=== PATIENT | female | born 1960 | race Caucasian/White ===

== ENCOUNTER 2025-08-14 10:55 | Outpatient (CLI) | payer MEDICARE, SELFPAY ==
--- OUTSIDE RECORDS SUMMARY | 2025-07-20 11:00 | XMS_ITS | Encounter Summary ---
[facility] Address [address] [place] [address] Care Team Providers Care Component Overhaul Operator Name Role Phone Herminia Peraza TAMPING MACHINE OPERATOR Primary Care Provider [phone] Reason for Visit * Reason Comments Difficulty Urinating Encounter Details Date Type Department Care Team (Late st Contact Info) Description 07/20/2025 11:00 AM EDT Office Visit [facility] [address] [place] [address] [place] [phone] Herminia Peraza, TAMPING MACHINE OPERATOR [address] [place], [place] [id number] Dysuria (Primary Dx); Acute cystitis with hematuria Social History Tobacco Use Types Packs/Day Years Used Date Smoking Tobacco: Every Day Cigarettes 0.5 45 Smokeless Tobacco: Never Comments:less than .50 ppd Alcohol Use Standard Drinks/Week Comments Yes 0 (1 standard drink = 0.6 oz pur e alcohol) 3-4 drinks a week PHQ-2 Answer Date Recorded Patient Health Questionnaire-2 Score 0 06/09/2025 Comments No Sex and Gender Information Value Date Recorded Sex Assigned at Not on file Legal Sex Female 2:45 PM EDT Gender Identity Not on file Sexual Orientation Not on file 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 Not on file Not on file documented as of this encounter Last Filed Vital Signs Vital Sign Reading Time Taken Comments Blood Pressure - - Pulse 68 07/20/2025 11:04 AM EDT Temperature 37.7 C (99.9 F) 07/20/2025 11:04 AM EDT Respiratory Rate 16 07/20/2025 11:04 AM EDT Oxygen Saturation 95% 07/20/2025 11:04 AM EDT Inhaled Oxygen Concentration - - Weight 64 kg (141 lb) 07/20/2025 11:04 AM EDT Height 167.6 cm (5' 6 ) 07/20/2025 11:04 AM EDT Body Mass Index 22.76 07/20/2025 11:04 AM EDT documented in this encounter Progress Notes * StuAnny brambilalogan [place], TAMPING MACHINE OPERATOR - 07/20/2025 11:00 AM EDT Images from the original note were not included. Office Note Name: Ely Tran : 1960 Chief Complaint Difficulty Urinating Subjective History of Present Illness The patient presents for evaluation of a possible urinary tract infection (UTI). She has been experiencing discomfort for slightly over a week, which she attributes to a UTI. Her symptoms began during a trip to [facility] last week with a mild burning sensation during urination. However, her condition worsened on Thursday night with the onset of chills, fever, body aches, and back pain. These symptoms are somewhat alleviated by ibuprofen, but the burning sensation persists. She reports feeling unwell for the past 24 hours, describing her symptoms as flu-like, including the burningsensation and backache. She does not have any congestion. Initially, she thought her symptoms were due to excessive beer consumption, but even after abstaining from alcohol, her condition did not improve. She also reports an unpleasant odor in her urine. She has no history of UTIs and initially suspected a yeast infection, but the absence of itching led her to rule this out. She spends a significant amount of time in water. She has never contracted COVID-19 and reports no related symptoms. Prior to her vacation, she was consuming 80 to 90 ounces of water daily in an attempt to lose weight, but she stopped this regimen during her trip. SOCIAL HISTORY She admits to drinking beer. MEDICATIONS CURRENT MEDS: Ibuprofen Oral As needed Objective Past Medical History: Diagnosis Date GERD (gastroesophageal reflux disease) Heart burn Hyperlipidemia Lung nodule Peptic ulceration Past Surgical History: Procedure Laterality Date DENTAL PROCEDURE TONSILLECTOMY Family History Problem Relation Age of Onset Alzheimer's disease Mother Thyroid disease Mother Rheum arthritis Father Cancer Father parathyroid cancer Vital Signs Pulse 68 Temp 99.9 ??F (37.7 ??C) (Temporal) Resp 16 Ht 167.6 cm (66 ) Wt 64 kg (141 lb) SpO2 95% BMI 22.76 kg/m?? Estimated body mass index is 22.76 kg/m?? as calculated from the following: Height as of this encounter: 167.6 cm (66 ). Weight as of this encounter: 64 kg (141 lb). Facility age limit for growth %walt is 20 years. Physical Exam Vitals reviewed. Constitutional: Appearance: Normal appearance. HENT: Head: Normocephalic and atraumatic. Right Ear: Tympanic membrane, ear canal and external ear normal. Left Ear: Tympanic membrane, ear canal and external ear normal. Nose: Nose normal. Mouth/Throat: Mouth: Mucous membranes are moist. Pharynx: Oropharynx is clear. Eyes: Conjunctiva/sclera: Conjunctivae normal. Cardiovascular: Rate and Rhythm: Normal rate and regular rhythm. Heart sounds: Normal heart sounds. Pulmonary: Effort: Pulmonary effort is normal. Breath sounds: Normal breath sounds. Abdominal: Tenderness: There is no abdominal tenderness. There is no right CVA tenderness, left CVA tenderness, guarding or rebound. Musculoskeletal: Cervical back: Neck supple. Skin: General: Skin is warm and dry. Capillary Refill: Capillary refill takes less than 2 seconds. Neurological: Mental Status: She is alert and oriented to person, place, and time. POCT Results (if applicable): Results for orders placed or performed in visit on 07/20/25 POC Urinalysis Dipstick Collection Time: 07/20/25 11:07 AM Specimen: Urine Result Value Ref Range Color Straw Yellow, Straw, Dark Yellow, [place]a Clarity, UA Cloudy (A) Clear Glucose, UA Negative Negative mg/dL Bilirubin Negative Negative Ketones, UA Negative Negative Specific [place] 1.010 1.005 - 1.030 Blood, UA 2+ (A) Negative pH, Urine 1.0 (A) 5.0 - 8.0 Protein, POC 1+ (A) Negative mg/dL Urobilinogen, UA 0.2 E.U./dL Normal, 0.2 E.U./dL Leukocytes Large (3+) (A) Negative Nitrite, UA Negative Negative Assessment and Plan Diagnoses and all orders for this visit: 1. Dysuria (Primary) - POC Urinalysis Dipstick - nitrofurantoin, macrocrystal-monohydrate, (Macrobid) 100 MG capsule; Take 1 capsule by mouth 2 (Two) Times a Day. Dispense: 10 capsule; Refill: 0 - phenazopyridine (Pyridium) 100 MG tablet; Take 1 tablet by mouth 3 (Three) Times a Day As Needed for Bladder Spasms or Dysuria. Dispense: 10 tablet; Refill: 0 2. Acute cystitis with hematuria Assessment & Plan 1. Urinary Tract Infection (UTI). Symptoms include burning during urination, chills, fever, body aches, and back pain. Urinalysis confirmed the presence of blood and leukocytes, indicating a UTI. A prescription for Macrobid 100 mg, to be taken twice daily for 5 days, has been provided. Additionally, Pyridium 200 mg has been prescribed to alleviate urinary discomfort, to be taken three times daily as needed. She is advised to maintain adequate hydration and continue ibuprofen for back pain management. The use of cranberry juice or tablets is also recommended. If there is no improvement in her condition, she should inform the clinic. BMI is within normal parameters. No other follow-up for BMI required. Follow Up Return if symptoms worsen or fail to improve. Patient or patient technical sales representatives verbalized consent for the use of Ambient Listening during the visit with Herminia Peraza APRN for chart documentation. 07/20/2025 13:10 EDT Herminia Peraza APRN documented in this encounter Plan of Treatment Not on file documented as of this encounter Procedures Procedure Name Priority Date/Time Associated Diagnosis Comments POCT URINALYSIS DIPSTICK, MANUAL Routine 07/20/2025 11:07 AM EDT Dysuria documented in this encounter Results * (ABNORMAL) POC Urinalysis Dipstick (07/20/2025 11:07 AM EDT) Color Straw Yellow, Straw, Dark Yellow, Toya [facility] Clarity, UA Cloudy(A) Clear [facility] Glucose, UA Negative Negative mg/dL [facility] Bilirubin Negative Negative [facility] Ketones, UA Negative Negative [facility] Specific [place] 1.010 1.005 - 1.030 [facility] Blood, UA 2+(A) Negative [facility] pH, Urine 1.0(A) 5.0 - 8.0 [facility] Protein, POC 1+(A) Negative mg/dL [facility] Urobilinogen, UA 0.2 E.U./dL Normal, 0.2 E.U./dL [facility] Leukocytes Large (3+)(A) Negative [facility] Nitrite, UA Negative Negative [facility] Urine 07/20/2025 11:0 7 AM EDT Herminia Peraza TAMPING MACHINE OPERATOR POINT OF CARE TEST ORDERABL ES Final Result [facility]
[address] [place] [address], documented in this encounter Visit Diagnoses Diagnosis Dysuria- Primary Acute cystitis with hematuria documented in this encounter Care Teams Component Overhaul Operator Relationship Specialty Start Date End Date Herminia Peraza, TAMPING MACHINE OPERATOR [address] [place] [id number] PCP - General Family Medicine 10/06/24 documented as of this encounter
--- OUTSIDE RECORDS SUMMARY | 2025-07-27 15:00 | XMS_ITS | Encounter Summary ---
[facility] Address [address] [place] [address] Care Team Providers Care Chute Puller Name Role Phone Herminia Peraza TIP INSERTER Primary Care Provider [phone] Reason for Visit * Reason Comments dysuria Encounter Details Date Type Department Care Team (Late st Contact Info) Description 07/27/2025 3:00 PM EDT Office Visit [facility] [address] [place] [address] [place] [address] Herminia Peraza, TIP INSERTER [address] [place], [place] [id number] Dysuria (Primary Dx); Acute cystitis with hematuria [...] Taken Comments Blood Pressure - - Pulse 90 07/27/2025 2:44 PM EDT Temperature 36.6 C (97.9 F) 07/27/2025 2:44 PM EDT Respiratory Rate 16 07/27/2025 2:44 PM EDT Oxygen Saturation 98% 07/27/2025 2:44 PM EDT Inhaled Oxygen Concentration - - Weight 64 kg (141 lb) 07/27/2025 2:44 PM EDT Height 167.6 cm (5' 6 ) 07/27/2025 2:44 PM EDT Body Mass Index 22.76 07/27/2025 2:44 PM EDT documented in this encounter Progress Notes * StuHerminia brambila Román, TIP INSERTER - 07/27/2025 3:00 PM EDT Images from the original note were not included. Office Note Name: Ely Tran : 1960 Chief Complaint dysuria Subjective History of Present Illness The patient presents for evaluation of a urinary tract infection. She reports an improvement in her condition following the onset of symptoms on 07/21/2025. Patient was last evaluated in our office on July 20 at which time she was prescribed Macrobid for complaints that she was experiencing fever, chills, and body aches, which led to two days of bed rest. Her fever peaked at 101 degrees. By 07/23/2025, she was able to attend her great nephew's soccer game but required rest afterward. Her symptoms of aching and chills have since subsided. However, she continues to experience burning during urination and has noticed an abnormal color in her urine. She has been able to maintain her appetite and hydration. She also reports that consuming beer exacerbatedher symptoms, leading her to abstain from it for the past two weeks. She has tried Pyridium for theburning sensation during urination but found it ineffective. SOCIAL HISTORY The patient has not had a beer since Thursday a week ago. MEDICATIONS CURRENT MEDS: Pyridium Objective Past Medical History: Diagnosis Date GERD (gastroesophageal reflux disease) Heart burn Hyperlipidemia Lung nodule Peptic ulceration Past Surgical History: Procedure Laterality Date DENTAL PROCEDURE TONSILLECTOMY Family History Problem Relation Age of Onset Alzheimer's disease Mother Thyroid disease Mother Rheum arthritis Father Cancer Father parathyroid cancer Vital Signs Pulse 90 Temp 97.9 ??F (36.6 ??C) (Temporal) Resp 16 Ht 167.6 cm (66 ) Wt 64 kg (141 lb) SpO2 98% BMI 22.76 kg/m?? Estimated body mass index is 22.76 kg/m?? as calculated from the following: Height as of this encounter: 167.6 cm (66 ). Weight as of this encounter: 64 kg (141 lb). Facility age limit for growth %walt is 20 years. Physical Exam Vitals reviewed. Constitutional: Appearance: Normal appearance. Pulmonary: Effort: Pulmonary effort is normal. No respiratory distress. Abdominal: Tenderness: There is no right CVA tenderness or left CVA tenderness. Musculoskeletal: Cervical back: Neck supple. Skin: General: Skin is warm and dry. Neurological: Mental Status: She is alert and oriented to person, place, and time. POCT Results (if applicable): Results for orders placed or performed in visit on 07/27/25 POC Urinalysis Dipstick Collection Time: 07/27/25 2:53 PM Specimen: Urine Result Value Ref Range Color [place] (A) Yellow, Straw, Dark Yellow, Toya Clarity, UA Cloudy (A) Clear Glucose, UA Negative Negative mg/dL Bilirubin Negative Negative Ketones, UA Negative Negative Specific [place] 1.020 1.005 - 1.030 Blood, UA 2+ (A) Negative pH, Urine 6.0 5.0 - 8.0 Protein, POC Negative Negative mg/dL Urobilinogen, UA 0.2 E.U./dL Normal, 0.2 E.U./dL Leukocytes Large (3+) (A) Negative Nitrite, UA Positive (POSITIVE) Negative Assessment and Plan Diagnoses and all orders for this visit: 1. Dysuria (Primary) - Urine Culture - Urine, Urine, Clean Catch - POC Urinalysis Dipstick 2. Acute cystitis with hematuria - ciprofloxacin (Cipro) 500 MG tablet; Take 1 tablet by mouth 2 (Two) Times a Day for 7 days. Dispense: 14 tablet; Refill: 0 Assessment & Plan 1. Urinary Tract Infection. The patient's symptoms, including burning during urination and abnormal urine color, suggest a persistent urinary tract infection. A urine dipstick test confirmed the presence of nitrites. A prescription for Ciprofloxacin 500 mg, to be taken twice daily for 7 days, [facility]. A urine culture will be conducted to identify the specific bacteria, and results are expected by Thursday. The patient will be contacted with the results to confirm the effectiveness of Ciprofloxacin or to adjust the antibiotic if necessary. BMI is within normal parameters. No other follow-up for BMI required. Follow Up Return if symptoms worsen or fail to improve. Patient or patient territory sales representative verbalized consent for the use of Ambient Listening during the visit with Herminia Peraza APRN for chart documentation. 07/27/2025 14:58 EDT Herminia Peraza APRN documented in this encounter Plan of Treatment Not on file documented as of this encounter Procedures Procedure Name Priority Date/Time Associated Diagnosis Comments POCT URINALYSIS DIPSTICK, MANUAL Routine 07/27/2025 2:53 PM EDT Dysuria URINE CULTURE Routine 07/27/2025 2:40 PM EDT Dysuria documented in this encounter Results * (ABNORMAL) POC Urinalysis Dipstick (07/27/2025 2:53 PM EDT) Color [place](A) Yellow, Straw, Dark Yellow, Toya [facility] Clarity, UA Cloudy(A) Clear [facility] Glucose, UA Negative Negative mg/dL [facility] Bilirubin Negative Negative [facility] Ketones, UA Negative Negative [facility] Specific [place] 1.020 1.005 - 1.030 [facility] Blood, UA 2+(A) Negative [facility] pH, Urine 6.0 5.0 - 8.0 [facility] Protein, POC Negative Negative mg/dL [facility] Urobilinogen, UA 0.2 E.U./dL Normal, 0.2 E.U./dL [facility] Leukocytes Large (3+)(A) Negative [facility] Nitrite, UA Positive(POS ITIVE) Negative [facility] Urine 07/27/2025 2:53 PM EDT us Herminia Peraza APRN POINT OF CARE TEST ORDERABL ES Final Result [facility]
[address] [place] [address], [place] [phone] * (ABNORMAL) Urine Culture - Urine, Urine, Clean Catch (07/27/2025 2:40 PM EDT) Urine Culture Final report(A) [facility] Result 1 Escherichia coli(A) [facility] Comment: Cefazolin with an BRANDON <=16 predicts susceptibility to the oral agents cefaclor, cefdinir, cefpodoxime, cefprozil, cefuroxime, cephalexin, and loracarbef when used for therapy of uncomplicated urinary tract infections due to E. coli, Klebsiella pneumoniae, and Proteus mirabilis. Greater than 100,000 colony forming units per mL Susceptibility Testing Comment [facility] Comment: S = Susceptible; I = Intermediate; R = Resistant P = Positive; N = Negative MICS are expressed in micrograms per mL Antibiotic RSLT#1 RSLT#2 RSLT#3 RSLT#4 Amoxicillin/Clavulanic Acid S Ampicillin R Cefazolin S Cefepime S Cefoxitin S Cefpodoxime S Ceftriaxone S Ciprofloxacin I Ertapenem S Gentamicin S Levofloxacin I Meropenem S Nitrofurantoin S Piperacillin/Tazobactam S Tetracycline S Tobramycin S Trimethoprim/Sulfa S Urine Urine specimen obtained by clean catch procedure / Unknown 07/27/2025 2:40 PM EDT 07/27/2025 Comment:Urine Release to [facility] Eduardo [facility]) - 07/30/2025 6:37 AM EDT Performed at: [address] [id number] Requisition Approver: Ashok Atkins PhD, Phone: [phone] Herminia Peraza APRN MICROBIOLOGY - GENERAL TIERNEY PETERSEN Final Result [facility] [address] [place] [address], [facility] [address] [place] [address], [place] [phone] documented in this encounter Visit Diagnoses Diagnosis Dysuria- Primary Acute cystitis with hematuria documented in this encounter Care Teams Chute Puller Relationship Specialty Start Date End Date Herminia Peraza, TIP INSERTER [address] [place] [id number] PCP - General Family Medicine 10/06/24 documented as of this encounter
--- OUTSIDE RECORDS SUMMARY | 2025-08-10 07:12 | XMS_ITS | Continuity of Care Document ---
Author Organization [facility] Phone Care Team Providers Care Assembled Wood Products Repairer Name Role Phone ZEE PONCE Primary Attending ZEE PONCE Admitting ZEE PONCE Unavailable ZEE PONCE Primary Care ALLERGIES AND ADVERSE REACTIONS ALLERGIES AND ADVERSE REACTIONS Code System Allergy Substance Adverse Reaction Date Reaction (Severity) Comment Status Reported By [place] [id number] SNOMED CT SULFA ANTIBIOTICS Adverse reaction to substance itching active [id number] on May 16, 2019 12:56:46 PM [facility] FAMILY HISTORY RELATION: Father Status: Cause of : Unknown Age at : Unknown SNOMED-CT Diagnosis Age At Onset [id number] Malignant neoplastic disease RELATION: Mother Status: LIVING SNOMED-CT Diagnosis Age At Onset [id number] Alzheimer's disease RESULTS Patient: DEBRA ADKINS Date of : 1960 LABORATORY RESULTS Information is not available LABORATORY NARRATIVE RESULTS Information is not available RADIOLOGY RESULTS ORDER 100: CT ABD/PELVIS W/O (LOINC: 24955-2) ORDER DATE: August 07, 2025 7:15:00 PM [facility] PERFORMING LAB: [address] [id number] Final Result Date: July 262024 7:27:00 PM [address] [place] [address] Name: MARIA T RICHARDSON Exam Date: 08/07/2025 : 1960 Age 64 years Gender: F Physician: ZEE PONCE Facility: [facility] Facility HSV: Outpatient Exam: CT ABD/PELVIS W/O CT ABDOMEN PELVIS WITHOUT IV CONTRAST 08/07/2025 2:27 PM CDT CLINICAL INDICATION: Female, 64 years old. pelvic phlebplitiasis COMPARISON: None TECHNIQUE: CT of the abdomen and pelvis was performed without IV contrast. The lack of contrast limits the sensitivity of this study for detecting pathology. Dose modulation, automated exposure control, and/or iterative reconstruction technique used for dose reduction. FINDINGS: Calcified granulomas right lung base. Lung bases otherwise clear. Calcified splenic granulomas. The solid organs otherwise unremarkable. The gallbladder is unremarkable. No evidence of bowel wall thickening or abnormal distention of bowel. The appendix is normal. No evidence of ascites. IMPRESSION: No radiographic evidence of acute disease. Electronically signed by: Bernie Lee MD 08/07/2025 03:43 PM EDT RP Dictated By: Bernie Lee Transcribed By: Transcribed On: 08/07/2025 3:27 PM Electronically signed by: Bernie Lee 08/07/2025 Thank you for referring MARIA T RICHARDSON to [facility]. Legally authenticated by CORBIN DAVIDSON III, MD 2025-08-07 15:27:00 PATHOLOGY NARRATIVE RESULTS Information is not available MICROBIOLOGY RESULTS No Micro Labs/Results Exist for Patient BLOOD ADMIN RESULTS Information is not available MEDICATIONS HOME MEDICATIONS Status RXNORM NDC Medication Dose Route Frequency Dates Comments Reported By Updated By Drug Treatment Unknown DISCHARGE MEDICATIONS Status RXNORM NDC Medication Dose Route Frequency Dates Dis pense Data Comments Physician Updated By No Discharge Medication Info rmation Available INPATIENT MEDICATIONS Status RXNORM NDC Medication Dose Route Frequency Rat e Quantity Dates Indication Dispense Data Comments Physician Updated By No Inpatient Medication Info rmation Available SOCIAL HISTORY SOCIAL HISTORY - Smoking Status SNOMED-CT Social History Element Description Effective Dates Offered Cessation Comment Updated By [id number] Historical Tobacco smoking status Current Every Day Smoker Yes [id number] on May 12, 2019 12:08:25 PM [facility] SOCIAL HISTORY - Gender Sex: Female SOCIAL HISTORY - Status : status i nformation is not available Intention in Next Year: intention information is not available SOCIAL HISTORY - Assessments Code System Description Status Date Value of Assessment Updated By Comment Assessment Information is no t available SOCIAL HISTORY - [place] Affiliation [place] information is not av ailable SOCIAL HISTORY - Legal Sex Legal Sex information is not available SOCIAL HISTORY - Sexual Behavior Sexual Orientation Gender Identity SNOMED-CT Description SNO MED -CT Description Activity Level No of Partners Partner Type UpdatedBy Information is not available SOCIAL HISTORY - Occupation Occupation information is no t available HEALTH CONCERNS Problems Concern Status Health Concern problem infor mation not available. Smoking Status Status Years Used Consumed packs p er day Health Concern smoking histo ry information not available. Family History Concern Status Health Concern family histor y information not available. MEDICAL EQUIPMENT MEDICAL EQUIPMENT Device Status Quantity Dates Procedure Comments Updated By No implanted devices [id number] on 2024 2:59:03 PM [facility] ENCOUNTERS ENCOUNTER INFORMATION Reason for Visit I87.8 Admission August 07, 2025 6:51:[address] [id number] Discharge August 07, 2025 11:51:00 PM [facility] DISCHARGED TO HOME OR SELF CARE ENCOUNTER DIAGNOSES Notes information is not christina ilable. Code System Diagnosis Onset Date Diagnosis information is not available. ABSTRACT DIAGNOSES Code System Diagnosis Updated By Abatement Date I87.8 ICD10 OTHER SPECIFIED DISORDERS OF VEINS [id number] on August 10, 2025 11:11:52 AM [facility] I87.8 ICD10 OTHER SPECIFIED DISORDERS OF VEINS [id number] on August 10, 2025 11:11:52 AM [facility] CARE TEAM Care Assembled Wood Products Repairer Role ZEE PONCE Primary Attending ZEE PONCE Admitting ZEE PONCE Referring ZEE PONCE Primary Care CARE TEAM CARE geography instructor Role on Team Location Telecom Status Start Date End Ronaldo e Updated By KRIS KOCH APRN PCP normal August 07, 2025 1:31:04 PM [facility] August 07, 2025 11:51:00 PM [facility] [id number] on August 07, 2025 1:31:04 PM [facility] KRIS KOCH APRN Referring normal August 07, 2025 1:31:04 PM [facility] August 07, 2025 11:51:00 PM [facility] [id number] on August 07, 2025 1:31:04 PM [facility] KRIS KOCH APRN Attending normal August 07, 2025 1:31:04 PM [facility] August 07, 2025 11:51:00 PM [facility] [id number] on August 07, 2025 1:31:04 PM [facility] KRIS KOCH APRN Admitting normal August 07, 2025 1:31:04 PM [facility] August 07, 2025 11:51:00 PM [facility] [id number] on August 07, 2025 1:31:04 PM [facility]
--- OUTSIDE RECORDS SUMMARY | 2025-08-10 08:22 | XMS_ITS | Continuity of Care Document ---
Author Organization [facility] Phone Care Team Providers Care Examination Scorer Name Role Phone ZEE PONCE Primary Care ZEE PONCE Unavailable ZEE PONCE Primary Attending ZEE PONCE Admitting ALLERGIES AND ADVERSE REACTIONS ALLERGIES AND ADVERSE REACTIONS Code System Allergy Substance Adverse Reaction Date Reaction (Severity) Comment Status Reported By Updated [place] [id number] SNOMED CT SULFA ANTIBIOTICS Adverse reaction to substance itching active [id number] on May 16, 2019 12:56:46 PM [facility] FAMILY HISTORY RELATION: Father Status: Cause of : Unknown Age at : Unknown SNOMED-CT Diagnosis Age At Onset [id number] Malignant neoplastic disease RELATION: Mother Status: LIVING SNOMED-CT Diagnosis Age At Onset [id number] Alzheimer's disease RESULTS Patient: DEBRA ADKINS Date of : 1960 LABORATORY RESULTS Information is not available LABORATORY NARRATIVE RESULTS Information is not available RADIOLOGY RESULTS ORDER 100: ABD KUB 1V (LOINC : 68204-2) ORDER DATE: August 07, 2025 12:25:00 PM [facility] PERFORMING LAB: [address] [id number] Final Result Date: July 262024 12:35:08 PM [address] [place] [address] Name: MARIA T RICHARDSON Exam Date: 08/07/2025 : 1960 Age 64 years Gender: F Physician: ZEE PONCE Facility: [facility] Facility HSV: Outpatient Exam: ABD KUB 1V EXAMINATION: ONE VIEW ABDOMEN RADIOGRAPH CLINICAL INDICATION: Female, 64 years old. r/o renal stone TECHNIQUE: One view, AP supine, x-ray of the abdomen was performed. [id number]. COMPARISON: No prior exam. FINDINGS: No free air, bowel wall pneumatosis, dilated bowel or abnormal fecal accumulation within the lower GI tract. There are several small calcified pelvic phleboliths. IMPRESSION: No active process. Calcified pelvic phleboliths. Electronically signed by: Bryan Bower MD 08/07/2025 08:42 AM EDT RP Dictated By: BRYAN BOWER Transcribed By: Transcribed On: 08/07/2025 8:35 AM Electronically signed by: BRYAN BOWER 08/07/2025 Thank you for referring MARIA T RICHARDSON to [facility]. Legally authenticated by CHELI MCMILLAN MD 2025-08-07 08:35:08 PATHOLOGY NARRATIVE RESULTS Information is not available [...] Effective Dates Offered Cessation Comment Updated By [id number] Historical Tobacco smoking status Current Every Day Smoker Yes [id number] on May 12, 2019 12:08:25 PM [facility] SOCIAL HISTORY - Gender Sex: Female SOCIAL HISTORY - Status : status i nformation is not available Intention in Next Year: intention information is not available SOCIAL HISTORY - Assessments Code System Description Status Date Value of Assessment Updated By Comment Assessment Information is no t available SOCIAL HISTORY - [place] Affiliation [place] information is not av ailable SOCIAL HISTORY [...] Procedure Comments Updated By No implanted devices [id number] on 2024 2:59:03 PM [facility] ENCOUNTERS ENCOUNTER INFORMATION Reason for Visit R30.0 Admission August 07, 2025 12:16:00 PM [facility] [address] [facility] [address] Discharge August 07, 2025 12:16:00 PM [facility] DISCHARGED TO HOME OR SELF CARE ENCOUNTER DIAGNOSES Notes information is not christina ilable. Code System Diagnosis Onset Date Diagnosis information is not available. ABSTRACT DIAGNOSES Code System Diagnosis Updated By Abatement Date R30.0 ICD10 DYSURIA [id number] on 2024 12:21:45 PM [facility] I87.8 ICD10 OTHER SPECIFIED DISORDERS OF VEINS [id number] on August 10, 2025 12:21:45 PM [facility] R30.0 ICD10 DYSURIA [id number] on 2024 12:21:45 PM [facility] CARE TEAM Care Examination Scorer Role ZEE PONCE Primary Care ZEE PONCE Referring ZEE PONCE Primary Attending ZEE PONCE Admitting CARE TEAM CARE misdraw hand Role on Team Location Telecom Status Start Date End Ronaldo e Updated By KRIS KOCH APRN PCP normal August 07, 2025 4:00:00 AM [facility] August 07, 2025 12:16:00 PM [facility] [id number] on August 07, 2025 12:16:24 PM [facility] KRIS KOCH APRN Referring normal August 07, 2025 4:00:00 AM [facility] August 07, 2025 12:16:00 PM [facility] [id number] on August 07, 2025 12:16:24 PM [facility] KRIS KOCH APRN Attending normal August 07, 2025 4:00:00 AM [facility] August 07, 2025 12:16:00 PM [facility] [id number] on August 07, 2025 12:16:24 PM [facility] KRIS KOCH APRN Admitting normal August 07, 2025 4:00:00 AM [facility] August 07, 2025 12:16:00 PM [facility] [id number] on August 07, 2025 12:16:24 PM [facility]
--- OUTSIDE RECORDS SUMMARY | 2025-08-16 11:25 | XMS_ITS | Encounter Summary ---
[facility] Address [address] [place] [address] Care Team Providers Care Presiding Judge Name Role Phone Herminia Peraza BUSGIRL Primary Care Provider [phone] Reason for Visit * Reason Onset Date Comments MEDICATION CONCERNS 07/28/2025 Encounter Details Date Type Department Care Team (Late st Contact Info) Description 07/28/2025 Telephone [facility] [address] [place] [address] [place] [address] Herminia Peraza, BUSGIRL [address] [place], [place] [id number] MEDICATION CONCERNS Social History Tobacco Use Types Packs/Day Years [...] on file documented as of this encounter Miscellaneous Notes * Telephone Encounter - Dereje Mejía RegSched Rep - 07/28/2025 8:53 AM EDT Caller: Ely Tran Relationship: Self Best call back number: [phone] Which medication are you concerned about: ciprofloxacin (Cipro) 500 MG tablet Who prescribed you this medication: Eric PERAZA When did you start taking this medication: NEW What are your concerns: PT STATED RX WAS SENT TO [facility] BUT THEY ARE CLOSED AND WILL NOT BE OPEN OVER THE WEEKEND. PT IS IN NEED OF THE MEDICATION AND WOULD LIKE A NEW RX SENT TO [facility] [address] [place] [address] - [address] - [phone] - [phone] FX [phone] PLEASE SEND SUSANNAH. PT CANNOT WAIT UNTIL THURSDAY. PLEASE LET HER KNOW WHEN IT IS SENT. documented in this encounter Plan of Treatment Not on file documented as of this encounter Visit Diagnoses Diagnosis Acute cystitis with hematuria documented in this encounter Care Teams Presiding Judge Relationship Specialty Start Date End Date Hemrinia Peraza APRN [address] [place] [address] PCP - General Family Medicine 10/06/24 documented as of this encounter
--- OUTSIDE RECORDS SUMMARY | 2025-08-16 11:25 | XMS_ITS | Encounter Summary ---
[facility] Address [address] [place] [address] Care Team Providers Care Wheelchair Van Driver Name Role Phone Herminia Peraza SAMPLE CASE PORTER Primary Care Provider [phone] Reason for Visit * Reason Onset Date Comments New Med Request 07/17/2025 Encounter Details Date Type Department Care Team (Late st Contact Info) Description 07/17/2025 Telephone [facility] PRIMARY CARE [address] [place] [address] [place] [address] Herminia Peraza, SAMPLE CASE PORTER [address] [place], [place] [id number] New Med Request Social History Tobacco Use Types Packs/Day Years [...] encounter Miscellaneous Notes * Telephone Encounter - Xuan Teague MA - 07/17/2025 4:07 PM EDT Called pt and scheduled for an appt. * Telephone Encounter - Romario Degroot RegSched Rep - 07/17/2025 2:46 PM EDT Caller: Ely Tran Relationship: Self Best call back number: [phone] What medication are you requesting: ANTIBIOTIC FOR UTI What are your current symptoms: BURNING WITH URINATION FREQUENT URINATION How long have you been experiencing symptoms: A WEEK Have you had these symptoms before: [] Yes [x] No Have you been treated for these symptoms before: [] Yes [x] No If a prescription is needed, what is your preferred pharmacy and phone number: [facility] Additional notes: PATIENT WAS ON VACATION TO [facility] WHEN SYMPTOMS BEGAN. documented in this encounter Plan of Treatment Not on file documented as of this encounter Visit Diagnoses Not on filedocumented in this encounter Care Teams Wheelchair Van Driver Relationship Specialty Start Date End Date Herminia Peraza APRN [address] [place], [place] [phone] PCP - General Family Medicine 10/06/24 documented as of this encounter
--- OUTSIDE RECORDS SUMMARY | 2025-08-16 11:25 | XMS_ITS | Encounter Summary ---
Author Organization [facility] Address [address] [place] [address] Care Team Providers Care Bottle Packing Machine Cleaner Name Role Phone Herminia Peraza CIRCUS TRAINER Primary Care Provider Encounter Details Date Type Department Care Team (Latest Contact Info) Description 07/20/2025 Travel Social History Tobacco Use Types Packs/Day Years [...] on file documented as of this encounter Plan of Treatment Not on file documented as of this encounter Visit Diagnoses Not on filedocumented in this encounter Care Teams Bottle Packing Machine Cleaner Relationship Specialty Start Date End Date Herminia Peraza APRN [address] [place] [address] PCP - General Family Medicine 10/06/24 documented as of this encounter
--- OUTSIDE RECORDS SUMMARY | 2025-08-16 11:25 | XMS_ITS | Encounter Summary ---
[facility] [address] [place] [address] Care Team Providers Care Computational Physicist Name Role Phone Herminia Peraza MANAGER RESIDENTIAL Primary Care Provider Encounter Details Date Type Department Care Team (Latest Contact Info) Description 07/27/2025 Travel Social History Tobacco Use Types Packs/Day [...] on filedocumented in this encounter Care Teams Computational Physicist Relationship Specialty Start Date End Date Herminia Peraza APRN [address] [place] [id number] PCP - General Family Medicine 10/06/24 documented as of this encounter
--- OUTSIDE RECORDS SUMMARY | 2025-08-16 11:26 | XMS_ITS | Encounter Summary ---
Author Organization [facility] Address [address] [place] [address] Care Team Providers Care Charting Clerk Name Role Phone Herminia Peraza PELT DROPPER Primary Care Provider [phone] Encounter Details Date Type Department Care Team (Late st Contact Info) Description 01/13/2018 Telephone [facility] CARDI[facility] SURGERY [address] [place] [address] [address] [place] [id number] Marilu Polanco, Jose Rep Social History Tobacco Use Types Packs/Day Years Used Date Smoking Tobacco: Every Day Cigarettes 0.5 45 Smokeless Tobacco: Never Alcohol Use Standard Drinks/Week Comments Yes 0 (1 standard drink = 0.6 oz pur e alcohol) Comments No Sex and Gender Information Value [...] on filedocumented in this encounter Care Teams Charting Clerk Relationship Specialty Start Date End Date Herminia Peraza APRN [address] [place] [address] PCP - General Family Medicine 10/06/24 documented as of this encounter
--- OUTSIDE RECORDS SUMMARY | 2025-08-16 11:26 | XMS_ITS | Encounter Summary ---
[facility] Address [address] [place] [address] Care Team Providers Care Court Reporter Name Role Phone Herminia Peraza LEAD MATERIAL HANDLER Primary Care Provider [phone] Encounter Details Date Type Department Care Team (Late st Contact Info) Description 07/31/2025 Results Follow-Up [facility]IMARY [facility] [address] [place] [address] [place] [address] Herminia Peraza APRN [address] [place], [place] [phone] Social History Tobacco Use Types Packs/Day Years [...] on filedocumented in this encounter Care Teams Court Reporter Relationship Specialty Start Date End Date Herminia Peraza APRN [address] [place] [phone] PCP - General Family Medicine 10/06/24 documented as of this encounter
--- OUTSIDE RECORDS SUMMARY | 2025-08-16 11:26 | XMS_ITS | Encounter Summary ---
[facility] [address] [place] [address] Care Team Providers Care Telegraphic Typewriter Operator Name Role Phone Herminia Peraza APRN Primary Care Provider [phone] Reason for Referral * Consultation (Routine) - Closed Specialty Diagnoses / Procedures Referred By Annalee morillo Referred To Contact Urology Diagnoses Dysuria Pelvic phlebolithiasis Procedures [place] OFFICE/OUTPATIENT NEW MODERATE MDM 45 MINUTES Herminia Peraza APRN [address] [place] [address] Phone: tel: fax: Garfield Alston MD [address] [place] [address] Phone: tel: fax: Referral ID Status Reason Start Date Expiration Date V isits Requested Visits Authorized [id number] Closed Specialty Services Required 08/07/2025 11/06/2026 1 1 Encounter Details Date Type Department Care Team (Late st Contact Info) Description 08/07/2025 Results Follow-Up [facility] [address] [place] [address] [place] [address] Herminia Peraza APRN [address] [place] [address] Social History Tobacco Use Types Packs/Day Years [...] as of this encounter Visit Diagnoses Diagnosis Dysuria- Primary Pelvic phlebolithiasis documented in this encounter Care Teams Telegraphic Typewriter Operator Relationship Specialty Start Date End Date Herminia Peraza APRN [address] [place] [phone] PCP - General Family Medicine 10/06/24 documented as of this encounter
--- OUTSIDE RECORDS SUMMARY | 2025-08-16 11:26 | XMS_ITS | Clinical Summary ---
Author Organization [facility] Address [address] [place] [address] Care Team Providers Care Cryptologic Supervisor Name Role Phone Herminia Peraza LAUNDRY ASSISTANT Primary Care Provider [phone] Allergies No known active allergies Medications loratadine (CLARITIN) 10 MG tablet Take 1 tablet by mouth Daily. 3 05/07/20 17 Active Multiple Vitamins-[place] als (CENTRUM VITAMINTS PO) Take by mouth Daily. Active atorvastatin (LIPITOR) 10 MG tablet Take 1 tablet by mouth Daily. 0 09/20/20 19 Active lansoprazole (PREVACID) 30 MG capsule TAKE ONE CAPLET BY MOUTH DAILY FOR REFLUX 01/30/20 21 Active vitamin B-12 (CYANOCOBALAMI N) 500 MCG tablet Take 1 tablet by mouth Daily. Active vitamin E 400 UNIT capsule Take 1 capsule by mouth Daily. Active fluconazole (Diflucan) 150 MG tablet Take one tablet on day one and repeat on day 3 2 tablet 08/07/20 25 Active phenazopyridin e (Pyridium) 100 MG tabletIndicati ons:Dysuria Take 1 tablet by mouth 3 (Three) Times a Day As Needed for Bladder Spasms or Dysuria. 10 tablet 08/10/20 25 Active nitrofurantoin , macrocrystal-m onohydrate, (Macrobid) 100 MG capsuleIndicat ions:Dysuria Take 1 capsule by mouth 2 (Two) Times a Day. 10 capsule 07/20/20 25 025 Discontinued phenazopyridin e (Pyridium) 100 MG tabletIndicati ons:Dysuria Take 1 tablet by mouth 3 (Three) Times a Day As Needed for Bladder Spasms or Dysuria. 10 tablet 07/20/20 25 025 Discontinued(Re order) ciprofloxacin (Cipro) 500 MG tabletIndicati ons:Acute cystitis with hematuria Take 1 tablet by mouth 2 (Two) Times a Day for 7 days. 14 tablet 07/27/20 25 025 Discontinued(Re order) ciprofloxacin (Cipro) 500 MG tabletIndicati ons:Acute cystitis with hematuria Take 1 tablet by mouth 2 (Two) Times a Day for 7 days. 14 tablet 07/28/20 25 025 phenazopyridin e (Pyridium) 100 MG tabletIndicati ons:Dysuria Take 1 tablet by mouth 3 (Three) Times a Day As Needed for Bladder Spasms or Dysuria. 10 tablet 08/07/20 25 025 Discontinued(Re order) Active Problems Problem Noted Date Diagnosed Date Dysuria 07/20/2025 Acute cystitis with hematuria 07/20/2025 Dehydration 06/14/2025 Assessment & Plan (06/14/2025 8:00 PM EDT): Patient states that she has been experiencing these symptoms for approximately one month. One to two weeks ago patient began focusing on drinking more water and has noted improvement in the symptoms, so much so she almost cancelled her appointment today. Her dizziness is generally positional in nature. Patient does work outside frequently, even in the hot weather. She denies any headache, chest pain or shortness of breath.No concerning findings on physical exam today -Patient advised goal water consumption of 60-100 oz daily. On days she is working outside and sweating will need to increase that goal -Discussed magnesium supplement to be taken before bedtime. Patient to advise if no improvement. Bullous emphysema 10/09/2024 Assessment & Plan (10/09/2024 4:55 PM EST): Moderate upper lobe centrilobular emphysema and right apical bullous disease, followed by CT surgery, not been seen in two years. Per their last note, stable 0.5 cm left-sided fissural nodule, 2 mm left lower lobe nodule and 0.4 cm right perifissural nodule that are all unchanged. There are calcified granulomas. There are no concerning pulmonary nodules. Patient previously followed by Dr. Mak Mejía who is now retired. Will need referral to new vascular or pulmonary service. Patient not currently on any daily respiratory medications, she denies any chronic issues with shortness of breath, difficulty breathing, wheezing or chest tightness. She does suffer from bronchitis from time to time. 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 However her hands are now developing nodules and seem to be progressively worsening. There is some concern for autoimmune or rheumatologic as opposed to osteoarthritis pattern due to her father having rheumatoid arthritis. Will order rheumatoid factor and PRINCE today Encounter to establish care 10/06/2024 Medicare annual wellness visit, initial 10/06/20 24 Mixed hyperlipidemia 10/06/2024 Assessment & Plan (10/09/2024 4:54 PM EST): Patient having her lipids rechecked today, currently on regimen of atorvastatin 10 mg daily Gastroesophageal reflux disease without esophagi tis 10/06/2024 Assessment & Plan (10/09/2024 4:54 PM EST): Patient has adequate reflux control with daily Prevacid 30 mg Cigarette smoker 10/06/2024 Assessment & Plan (10/09/2024 4:51 PM EST): Patient half pack per day smoker for the last 45 years, giving her a 22-1/2 total pack year history. She has never had low-dose CT lung cancer screening. Resolved Problems Problem Noted Date Diagnosed Date Resolved Date Lung nodule 09/30/2019 10/09/2024 Solitary pulmonary nodule 06/08/2017 Encounters Date Type Department Care Team Description 08/10/2025 Telephone [facility] [address] [place] [address] Herminia Peraza APRN REFERRAL CONCERN 08/07/2025 Results Follow-Up [facility] [address] [place] [address] Herminia Peraza, LAUNDRY ASSISTANT 08/07/2025 Results Follow-Up [facility] [address] [place] [address] Herminia Peraza, LAUNDRY ASSISTANT 08/07/2025 Telephone [facility] [address] [place] [address] Herminia Peraza, LAUNDRY ASSISTANT 07/31/2025 Results Follow-Up [facility] [address] [place] [address] Herminia Peraza, LAUNDRY ASSISTANT 07/28/2025 Telephone [facility] [address] [place] [address] Herminia Peraza, LAUNDRY ASSISTANT MEDICATION CONCERNS 07/27/2025 3:00 PM EDT Office Visit [facility] [address] [place] [address] Herminia Peraza, LAUNDRY ASSISTANT Dysuria (Primary Dx); Acute cystitis with hematuria 07/27/2025 Travel 07/20/2025 11:00 AM EDT Office Visit [address] [place] [address] Herminia Peraza, LAUNDRY ASSISTANT Dysuria (Primary Dx); Acute cystitis with hematuria 07/20/2025 Travel 07/17/2025 Telephone [facility] [address] [place] [address] Herminia Peraza, LAUNDRY ASSISTANT New Med Request 06/09/2025 1:15 PM EDT Office Visit [facility] [address] [place] [address] Herminia Peraza, EDE Dehydration (Primary Dx) 06/09/2025 Travel from Last 3 Months Immunizations Immunization Administration Dates Next Due COVID-19 (MODERNA) BIVALENT 12+YRS 09/05/2022 Fluzone >6mos 08/24/2017,08/17/2016 Fluzone (or Fluarix & Flulaval for VFC) >6mos Fluzone High-Dose 65+YRS 10/10/2024 Shingrix 07/10/2021,08/24/2020 Family History Medical History Relation Name Comments Cancer Father parathyroid can cer Rheum arthritis Father Alzheimer's disease Mother Thyroid disease Mother Relation Name Status Comments Father Mother Alive Social History Tobacco Use Types Packs/Day Years Used Date Smoking Tobacco: Every Day Cigarettes 0.5 45 Smokeless Tobacco: Never Tobacco Cessation:Ready to Q uit: Not Asked; Counseling Given: Not Answered Comments:less than .50 ppd Alcohol Use Standard [...] file Not on file Not on file Last Filed Vital Signs Vital Sign Reading Time Taken Comments Blood Pressure 116/80 06/09/2025 1:28 PM EDT Pulse 90 07/27/2025 2:44 PM EDT Temperature 36.6 C (97.9 F) 07/27/2025 2:44 PM EDT Respiratory Rate 16 07/27/2025 2:44 PM EDT Oxygen Saturation 98% 07/27/2025 2:44 PM EDT Inhaled Oxygen Concentration - - Weight 64 kg (141 lb) 07/27/2025 2:44 PM EDT Height 167.6 cm (5' 6 ) 07/27/2025 2:44 PM EDT Body Mass Index 22.76 07/27/2025 2:44 PM EDT Plan of Treatment Health Maintenance Due Date Last Done Comments ROSALINO 2003 COLON CANCER SCREENING [address] COLONOGRAPHY 2003 FECAL OCCULT BLOOD TEST 2003 FIT Testing (1 year) 2003 INFLUENZA VACCINE 05/26/2025 10/10/2024, , 08/24/2017, Additional history exists COVID-19 Vaccine (6 - Pfizer risk season) 2025 07/16/2024, 09/05/2022, 08/15/2021, Additional history exists ANNUAL WELLNESS VISIT 10/06/2025 10/06/2024 Pneumococcal Vaccine 50+ (1 of 2 - PCV) 10/06/2025 Postponed from 1977 (Patient Refused) TDAP/TD VACCINES (1 - Tdap) 10/06/2025 Postponed from 1977 (Patient Refused) LIPID PANEL 10/10/2025 10/10/2024 LUNG CANCER SCREENING 11/11/2025 11/11/2024 , 03/06/2022, 01/14/2021, Additional history exists DXA SCAN 11/11/2026 11/11/2024, 10/06/2024 MAMMOGRAM 11/11/2026 11/11/2024 COLONOSCOPY 12/21/2034 12/21/2024, 05/06/2019 COLORECTAL CANCER SCREENING 12/21/2034 ZOSTER VACCINE Completed 07/10/2021, 08/24/2020 HEPATITIS C SCREENING Completed 10/10/2024 Procedures Procedure Name Priority Date/Time Associated Diagnosis Comments CT ABDOMEN PELVIS WO CONTRAST Routine 08/07/2025 Pelvic phlebolithiasis POCT URINALYSIS DIPSTICK, MANUAL Routine 07/27/2025 2:53 PM EDT Dysuria URINE CULTURE Routine 07/27/2025 2:40 PM EDT Dysuria POCT URINALYSIS DIPSTICK, MANUAL Routine 07/20/2025 11:07 AM EDT Dysuria SCANNED - COLONOSCOPY 12/21/2024 CT CHEST LOW DOSE WO CANCER SCREENING Routine 11/11/2024 Screening for lung cancer Personal history of nicotine dependence SCANNED - DEXA 11/11/2024 SCANNED - MAMMO 11/11/2024 LIPID PANEL Routine 10/10/2024 9:10 AM EST Medicare annual wellness visit, initial HEPATITIS C ANTIBODY Routine 10/10/2024 9:10 AM EST Need for hepatitis C screening test from Last 3 Months or Most Recently Relevant to Health Maintenance Results * CT Abdomen Pelvis Without Contrast (08/07/2025) Anatomical Region Laterality Modality Abdomen, Pelvis N/A Computed Tomogra phy Herminia Peraza APRN IMG CT ORDERABLES Final Res ult * (ABNORMAL) POC Urinalysis Dipstick (07/27/2025 2:53 PM EDT) Only the most recent of2 resultswithin the time period is included. Color [place](A) Yellow, Straw, Dark Yellow, [place]a [facility] Clarity, UA Cloudy(A) Clear [facility] Glucose, UA Negative Negative mg/dL [facility] Bilirubin Negative Negative [facility] Ketones, UA Negative Negative [facility] Specific [place] 1.020 1.005 - 1.030 [facility] Blood, UA 2+(A) Negative [facility] pH, Urine 6.0 5.0 - 8.0 [facility] Protein, POC Negative Negative mg/dL [facility] Urobilinogen, UA 0.2 E.U./dL Normal, 0.2 E.U./dL [facility] Leukocytes Large (3+)(A) Negative [facility] Nitrite, UA Positive(POS ITIVE) Negative [facility] Urine 07/27/2025 2:53 PM EDT Herminia Peraza LAUNDRY ASSISTANT POINT OF CARE TEST ORDERABL ES Final Result [facility]
[address] [place] [address], * (ABNORMAL) Urine Culture - Urine, Urine, [...] 2:40 PM EDT 07/27/2025 Comment:[facility] Narrative [facility] ([facility]) - 07/30/2025 6:37 AM EDT Performed at: [address] [place] [id number] [employer] Trimmer Hand: Ashok Atkins PhD, Phone: [phone] Herminia Peraza APRN [facility] RABYURIDIA Final Result [facility] ([facility]) [address] [id number], [facility] [address] [place] [address], [place] [phone] * Colonoscopy, Scan (12/21/2024) Herminia Peraza APRN CHART REVIEW TABS Final Result * MAMMO Scan (11/11/2024) Anatomical Region Laterality Modality Other Herminia Peraza APRN CHART REVIEW TABS Final Result * DEXA Scan (11/11/2024) Anatomical Region Laterality Modality Other Herminia Román Peraza APRN CHART REVIEW TABS Final Result * CT Chest Low Dose Cancer Screening WO (11/11/2024) Anatomical Region Laterality Modality Chest Computed Tomogra phy Herminia Peraza APRN IMG CT ORDERABLES Final Res ult * Hepatitis C Antibody (10/10/2024 9:10 AM EST) Hep C Virus Ab Non Reactive Non Reactive [facility] Comment: HCV antibody alone does not differentiate between previously resolved infection and active infection. Equivocal and Reactive HCV antibody results should be followed up with an HCV RNA test to support the diagnosis of active HCV infection. Blood Structure of left upper limb / Unknown 10/10/2024 9:10 AM EST 10/10/2024 Comment:[facility] Release to [facility] - 10/11/2024 1:06 PM EST Performed at: 01 - [address] [id number] [employer] Hand: Ashok Atkins PhD, Phone: [phone] Herminia Román Peraza APRN LAB BLOOD ORDERABLES Final Result [facility] [address] [place] [address], [facility] [address] [place] [address], * (ABNORMAL) Lipid Panel (10/10/2024 9:10 AM EST) Total Cholesterol 212(H) 100 - 199 mg/dL [facility] Triglycerides 124 0 - 149 mg/dL [facility] HDL Cholesterol 50 >39 mg/dL [facility] VLDL Cholesterol Vivek 22 5 - 40 mg/dL [facility] LDL Chol Calc (NIH) 140(H) 0 - 99 mg/dL [facility] Blood Structure of left upper limb / Unknown 10/10/2024 9:10 AM EST 10/10/2024 Comment:Blood Release to dario Clark [facility] ([facility]) - 10/11/2024 1:06 PM EST [facility]formed at: [facility] - [facility] [address] [place], [place] [id number] [employer] Tr[employer] Hand: Ashok Atkins PhD, Phone: [phone] Herminia Peraza APRN LAB BLOOD ORDERABLES Final Result [facility] ([facility]) [address] [place] [address], [facility] [address] [place] [address], from Last 3 Months or Most Recently Relevant to Health Maintenance Insurance MEDICARE A & B Member Subscriber Plan / Payer (Ef fective 2023-Present) Name:Ely Tran Member ID:[id number] Relation to Subscriber:Self Name:Ely Tran Subscriber ID:[id number] Payer ID:[id number] Group ID:Not on file Type:Not on file Address: [facility] [id number] [address] Care Teams Cryptologic Supervisor Relationship Specialty Start Date End Date Herminia Peraza APRN [address] [place] [address] PCP - General Family Medicine 10/06/24
--- OUTSIDE RECORDS SUMMARY | 2025-08-16 11:26 | XMS_ITS | Encounter Summary ---
[facility] Address [address] [place] [address] Care Team Providers Care Credit Administration Officer Name Role Phone Herminia Peraza EXPERIMENTAL ROCKETSLED MECHANIC Primary Care Provider [phone] Encounter Details Date Type Department Care Team (Late st Contact Info) Description 08/07/2025 Telephone [facility] [address] [place] [address] [address] [phone] Herminia Peraza, EXPERIMENTAL ROCKETSLED MECHANIC [address] [place] [address] Social History Tobacco Use Types [...] encounter Miscellaneous Notes * Telephone Encounter - Tammy Thakkar MA - 08/07/2025 8:18 AM EDT Rx sent documented in this encounter Plan of Treatment Not on file documented as of this encounter Visit Diagnoses Diagnosis Dysuria documented in this encounter Care Teams Credit Administration Officer Relationship Specialty Start Date End Date Herminia Peraza, EXPERIMENTAL ROCKETSLED MECHANIC [address] [id number] PCP - General Family Medicine 10/06/24 documented as of this encounter
--- OUTSIDE RECORDS SUMMARY | 2025-08-16 11:26 | XMS_ITS | Encounter Summary ---
[facility] Address [address] [place] [address] Care Team Providers Care Abseiling Instructor Name Role Phone Homa Peraza LATH TIER Primary Care Provider [phone] Reason for Visit * Reason Onset Date Comments REFERRAL CONCERN 08/10/2025 Encounter Details Date Type Department Care Team (Late st Contact Info) Description 08/10/2025 Telephone [facility] [address] [place] [address] [place] [phone] Homa Peraza, LATH TIER [address] [place] [address] REFERRAL CONCERN Social History Tobacco Use Types Packs/Day Years [...] Telephone Encounter - Tammy Thakkar MA - 08/10/2025 9:05 AM EDT Called and advised Patient that Homa is out of the office and will be back in office tomorrow . I did look at homa's note and she has referred her to urology. They can't get her in for a month.I called and got her in [facility] Thursday08/14/2025 at 9:30. Patient verbalized understanding * Telephone Encounter - Joy Thompson RegSched Rep - 08/10/2025 8:23 AM EDT Caller: Ely Tran Relationship: Self Best call back number: [phone] What is the medical concern/diagnosis: PT IS NEEDING TO SEE A UROLOGIST SUSANNAH PT IS HURTING, THE EARLIEST THAT SHE CAN SEEN UROLOGIST UNTIL AUGUST, PT WILL BE RUNNING OUT OF HER MEDICATION TODAY PT IS GOING TO BE IN MUCH MORE PAIN, WILL LIKE TO KNOW WHAT DR SUGGEST documented in this encounter Plan of Treatment Not on file documented as of this encounter Visit Diagnoses Diagnosis Dysuria documented in this encounter Care Teams Abseiling Instructor Relationship Specialty Start Date End Date Homa Peraza APRN [address] [phone] PCP - General Family Medicine 10/06/24 documented as of this encounter
--- OUTSIDE RECORDS SUMMARY | 2025-08-16 11:26 | XMS_ITS | Encounter Summary ---
[facility] Address [address] [place] [address] Care Team Providers Care Ent Physician Name Role Phone Herminia Peraza [employer] Primary Care Provider [phone] Encounter Details Date Type Department Care Team (Late st Contact Info) Description 08/07/2025 Results Follow-Up [facility] [address] [place] [address] [address] [place] [phone] Herminia Peraza APRN [address] [place], [place] [id number] Social History Tobacco Use Types Packs/Day Years [...] on filedocumented in this encounter Care Teams Ent Physician Relationship Specialty Start Date End Date Herminia Peraza APRN [address] [place] [phone] PCP - General Family Medicine 10/06/24 documented as of this encounter
[2025-08-18 00:09] LABS: Atopobium vaginae NOTORDERABLE High - 2 Score (.); BVAB2 Low - 0 Score (.); Candida albicans NAA Negative (Negative); Candida glabrata Negative (Negative); HSV 1 NAA Negative (Negative); HSV 2 NAA Negative (Negative)
== END 2025-08-14 23:59 | disposition home or self-care (01) ==
LOC: LAB.DROPOF 08-16 10:57
PROVIDERS: PCP Nurse Practitioner; Visit Provider Urology
DX: N89.8 Other specified noninflammatory disorders of vagina (principal); N39.0 Urinary tract infection, site not specified
CPT/HCPCS: 87086; 87088; 87186; 87491; 87529; 87591; 87661; 87798; 87801

== ENCOUNTER 2025-09-15 10:14 | Day surgery (SDC) | payer MEDICARE, OTHER, SELFPAY ==
[2025-09-12 15:36] VITALS: BMI 23.3
[2025-09-15 10:27] VITALS: BP 148/71; PULSE 88; RESP 16; TEMP 36.6; O2SAT 94
--- NOTE | 2025-09-15 10:48 | HMH.PROCNOTE ---
[facility] Procedure Note Date: 09/15/25 Time: 10:49 Procedure Note:: Chart review: The patient is troubled with dysuria. She has been found to have a recent urinary tract infection and bacterial vaginosis of which have treated. She is currently on Estrace and takes Macrobid for suppression. Hopefully be able to let the Estrace manage her UTI by improving vaginal health and stop the Macrobid. She went to [facility] when this all began. Her CT scan without infusion on 11/19 was negative. Of late she has been having episodic dysuria. She tells me she has had a pretty good week however over the last 5 or 6 days. Pre-Op diagnosis: Dysuria Postop diagnosis: Dysuria Operative note: The patient was brought to the cystoscopy suite. She is prepped in the standard fashion. She underwent a catheterized urine for culture and sensitivity and urine analysis. She underwent flexible cystoscopy. Her urethra was unremarkable. The bladder itself is [place] pink in color throughout without evidence of bladder stone tumor hemorrhage or infection. Her ureteral openings are normal bilaterally with clear urine. She tolerated the procedure well. Her bladder cystoscopic examination is normal.
[2025-09-15] MEDS: 0.9 % SODIUM CHLORIDE 500 ML 25 ML IV (10:54)
[2025-09-15 10:58] VITALS: BP 134/68; PULSE 75; RESP 16; TEMP 36.2; O2SAT 98
[2025-09-15 11:20] VITALS: BP 136/80; PULSE 75; RESP 16; TEMP 36.2; O2SAT 98
[2025-09-15 11:44] LABS: Microscopic,Cath URINE MICROSCOPIC (MICROSCOPIC)
[2025-09-15 11:47] LABS: Appearance,Urine/Cath CLEAR (Clear); Bilirubin,Cath Negative (Negative); Blood, Urine/Cath Negative (Negative); Color,Urine/Cath YELLOW (Yellow); Glucose,Urine/Cath (UA) Negative (Negative); Ketones,Urine/Cath Negative (Negative); Leukocyte Esterase,Cath Negative (Negative); Nitrate,Cath Negative (Negative); PH,Urine/Cath 6.0 (5.0-8.5); Protein,Urine/Cath Negative (Negative); Specific Gravity, Urine/Cath 1.020 (1.005-1.030); Urobilinogen,Cath 0.2 EU/dl (0.2)
[2025-09-15 12:13] LABS: RBC,Urine/Cath Occasional # /hpf (0-3); Squamous Epithelial Ur./Cath Occasional #/hpf (0-5); WBC,Urine/Cath Occasional #/hpf (0-3)
== END 2025-09-15 11:20 | disposition home or self-care (01) ==
PROVIDERS: PCP Nurse Practitioner; Visit Provider Urology
PROC: 0TJB8ZZ Inspection of Bladder, Via Natural or Artificial Opening Endoscopic (ICD-10-PCS; CPT 52000; principal; 2025-09-15 11:15)
DX: N39.0 Urinary tract infection, site not specified (principal); N95.2 Postmenopausal atrophic vaginitis; N76.0 Acute vaginitis; B96.89 Other specified bacterial agents as the cause of diseases classified elsewhere; Z87.440 Personal history of urinary (tract) infections; Z79.890 Hormone replacement therapy; Z79.2 Long term (current) use of antibiotics; F17.200 Nicotine dependence, unspecified, uncomplicated
CPT/HCPCS: 52000; 81001; J7040